=== PATIENT | female | born 1960 | race African-American/Black ===

== ENCOUNTER 2017-01-06 22:15 | Emergency (ER) | payer BC ==
[~2017-01-06] VITALS: Ht 162.6 cm; Wt 48.0 kg
[2017-01-06] MEDS ORDERED: ALBUTEROL (0.083%) 2.5MG/3ML NEB HHN STA (23:18)
[2017-01-06] MEDS ORDERED: PREDNISONE 20MG TABLET PO STA (23:18)
[2017-01-06] MEDS ORDERED: IPRATROPIUM BROMIDE (0.02%) 0.5MG/2.5ML NEB HHN STA (23:18)
[2017-01-06 23:46] LABS: BASOPHILS % 1.4 % (0.0-2.0); EOSINOPHILS % 3.7 % (0.0-5.0); HEMATOCRIT. 34.4 % (36.0-48.0); HEMOGLOBIN. 11.6 g/dL (12.0-16.0); LYMPHOCYTES % 32.6 % (20.0-50.0); MEAN CORPUSCULAR HEMOGLOBIN 28.6 pg (28.0-32.0); MEAN CORPUSCULAR VOLUME 84.8 fL (81.0-99.0); MEAN PLATELET VOLUME 7.6 fl (7.4-10.4); MONOCYTES % 11.2 % (2.0-8.0); NEUTROPHILS % 51.1 % (40.0-76.0); PLATELET 264 x1000/uL (130-400); RED BLOOD CELL COUNT 4.06 mill/uL (4.2-5.4); RED CELL DISTRIBUTION WIDTH 13.8 % (11.6-14.6)
[2017-01-06 23:50] LABS: CHLORIDE 110 mEq/L (98-107)
[2017-01-06 23:58] LABS: CARBON DIOXIDE 26 mEq/L (21-32)
[2017-01-07 00:52] VITALS: BP 129/68
== END 2017-01-07 02:18 | disposition home or self-care (01) ==
LOC: EDUNIT# 22:15 → ER 22:15
DX: J45.901 Unspecified asthma with (acute) exacerbation (principal); Z85.43 Personal history of malignant neoplasm of ovary
CPT/HCPCS: 36415; 71010; 80048; 85025; 94640; 99285; J7512; J7611; Z7610

== ENCOUNTER 2019-06-22 12:03 | Emergency (ER) | payer BC, OTHER ==
[~2019-06-22] VITALS: Ht 165.1 cm; Wt 49.0 kg
[2019-06-22] MEDS ORDERED: IPRATROPIUM/ALBUTEROL 0.5-3(2.5)MG/3ML NEB HHN ONE (15:00)
[2019-06-22 15:29] VITALS: BP 145/80
== END 2019-06-22 15:31 | disposition home or self-care (01) ==
LOC: ER 14:19
DX: Z76.0 Encounter for issue of repeat prescription (principal); M25.531 Pain in right wrist; J45.909 Unspecified asthma, uncomplicated; Z85.43 Personal history of malignant neoplasm of ovary
CPT/HCPCS: 94640; 99283; J7620; Z7610

== ENCOUNTER 2024-01-09 17:46 | Emergency (ER) | payer BC ==
[~2024-01-09] VITALS: Ht 167.6 cm; Wt 61.0 kg
[2024-01-09 17:53] VITALS: TEMP 97.6; O2SAT 98
[2024-01-09 18:50] VITALS: BP 161/85; PULSE 88; RESP 17
[2024-01-09 18:53] LABS: BASOPHILS % 0.7 % (0.0-2.0); EOSINOPHILS % 4.9 % (0.0-5.0); HEMATOCRIT. 36.6 % (36.0-48.0); HEMOGLOBIN. 12.6 g/dL (12.0-16.0); LYMPHOCYTES % 29.8 % (20.0-50.0); MEAN CORPUSCULAR HGB CONC 34.5 g/dL (31.0-37.0); MEAN CORPUSCULAR VOLUME 84.1 fL (81.0-99.0); MEAN PLATELET VOLUME 7.6 fl (7.4-10.4); MONOCYTES % 12.7 % (2.0-8.0); NEUTROPHILS % 51.9 % (40.0-76.0); PLATELET 273 x1000/uL (130-400); RED BLOOD CELL COUNT 4.35 mill/uL (4.2-5.4); RED CELL DISTRIBUTION WIDTH 14.4 % (11.6-14.6)
[2024-01-09 18:58] LABS: CHLORIDE 110 mEq/L (98-107); POTASSIUM 3.6 mEq/L (3.5-5.1); SODIUM 143 mEq/L (136-145)
[2024-01-09 18:59] LABS: CARBON DIOXIDE 27 mEq/L (21-32)
[2024-01-09 19:00] LABS: CALCIUM 9.2 mg/dL (8.7-10.4)
[2024-01-09 19:04] LABS: CREATININE 0.7 mg/dL (0.6-1.0); GLUCOSE 108 mg/dL (70-105)
[2024-01-09 19:05] LABS: UREA NITROGEN BLOOD 14 mg/dL (9-23)
[2024-01-09 19:07] LABS: TROPONIN I HIGH SENSITIVITY < 4 ng/L (3.0-34)
[2024-01-09] MEDS ORDERED: LORA-249 MT (20:25)
[2024-01-09] MEDS ORDERED: TOPUD MT (20:25)
[2024-01-09] MEDS ORDERED: IBUP-1523 MT (20:25)
[2024-01-09 20:48] LABS: TROPONIN I HIGH SENSITIVITY < 4 ng/L (3.0-34)
== END 2024-01-09 21:00 | disposition home or self-care (01) ==
LOC: ER 17:46
DX: R07.89 Other chest pain (principal); J45.909 Unspecified asthma, uncomplicated; R51.9 Headache, unspecified; V49.9XXA Car occupant (driver) (passenger) injured in unspecified traffic accident, initial encounter; Y93.89 Activity, other specified; Y92.89 Other specified places as the place of occurrence of the external cause; Y99.8 Other external cause status
CPT/HCPCS: 80048; 83880; 83605; 85025; 84484; 36415; 71045; 70450; 72125; 93005; 99285; Z7610 ×2